=== PATIENT | male | born 1965 | race Asian ===

== ENCOUNTER 2017-05-22 07:15 | Day surgery (SDC) | payer OTHER ==
[2017-05-22] MEDS ORDERED: GLYCOPYRROLATE 0.2 MG/ML VIAL ONE ×2 (08:24→08:53)
[2017-05-22 08:59] VITALS: BP_SYST 80
[2017-05-22] MEDS: MIDAZOLAM HCL 5 MG/5 ML VIAL ONE ×2 (09:00→09:04)
[2017-05-22] MEDS: MEPERIDINE HCL/PF 100 MG/ML AMP ONE ×2 (09:00→09:03)
[2017-05-22] MEDS ORDERED: SIMETHICONE 40 MG/0.6 ML ML ONE (09:09)
== END 2017-05-22 10:20 | disposition home or self-care (01) ==
LOC: SDS 07:15
PROVIDERS: ATTEND Colon & Rectal Surgery
DX: K59.8 Other specified functional intestinal disorders (principal); K64.8 Other hemorrhoids
CPT/HCPCS: 45378; 96365; J2175; J2250; J7030; J3490